=== PATIENT | female | born 1955 | race Caucasian/White ===

== ENCOUNTER 2020-06-16 09:00 | Day surgery (SDC) | payer BC, MEDICARE ==
[2020-06-11 11:17] LABS: BASOPHILS % (AUTO) 0.7 % (0.0-5.0); EOSINOPHILS % (AUTO) 2.1 % (0.0-8.0); HEMATOCRIT 45.6 % (36-48); LYMPHOCYTES % (AUTO) 22.9 % (21.0-51.0); MEAN CORPUSCULAR HEMOGLOBIN 31.2 pg (27.0-33.0); MEAN CORPUSCULAR HGB CONC 32.7 g/dL (32.0-36.0); MEAN CORPUSCULAR VOLUME 95.4 fL (79-99); MONOCYTES % (AUTO) 5.6 % (3.0-13.0); NEUTROPHILS % (AUTO) 68.4 % (40.0-77.0); PLATELET COUNT (AUTO) 322 K/uL (130-400); RED BLOOD CELL COUNT(AUTO) 4.78 MIL/uL (4.00-5.50); RED CELL DISTRIBUTION WIDTH 12.5 % (11.0-15.5); WHITE BLOOD COUNT (AUTO) 8.7 K/uL (4.8-10.8)
[2020-06-11 11:37] LABS: ALBUMIN 3.7 g/dL (3.5-5.0); BILIRUBIN,TOTAL 0.3 mg/dL (0.2-1.0); CREATININE 0.8 mg/dL (0.5-1.5); POTASSIUM 4.2 mmol/L (3.5-5.1); TOTAL PROTEIN, SERUM 7.4 g/dL (6.0-8.3)
[2020-06-11 12:19] LABS: INR 0.92 (0.85-1.15); PARTIAL THROMBOPLASTIN TIME 27.5 SEC (26.3-35.5)
[2020-06-14 09:49] VITALS: BP 193/84
[2020-06-16] VITALS (17 sets, daily range): BP systolic 118–184; BP diastolic 63–92
[~2020-06-16] VITALS: Ht 162.6 cm; Wt 90.6 kg
[~2020-06-16 09:00] MED LIST: ALBU8.5H8 IH; ASPI-556 PO; BUPR300T53 PO; LEVO112T4 PO; LORA10TA7 PO; LOSA100T58 PO; METF-444 PO
--- NOTE | 2020-06-16 11:20 | NUR ---
PROCEDURE LEFT BREAST NEEDLE LOCALIZATION PERFORMED BY DR AMEZQUITA. PT TERRANCE WELL. LEFT BREAST WITH WIRE IN PLACE DRESSING APPLIED DRY AND INTACT, PT TRANSFERRED BACK TO HOLDING AREA ROOM 10. PT PENDING SURGERY WITH DR. NICHOLS. REPORT GIVEN TO Eva AVILES RN
[2020-06-16] MEDS ORDERED: LIDOCAINE PF 2% 5ML ABBOJECT ONE (12:16)
[2020-06-16] MEDS ORDERED: PROPOFOL 10 MG/ML 20ML VIAL IV ONE (12:17)
[2020-06-16] MEDS ORDERED: FENTANYL CITRATE PF 50 MCG/1 ML 2ML VIAL ONE (12:17)
[2020-06-16] MEDS ORDERED: ONDANSETRON HCL 4 MG/2 ML VIAL ONE (12:17)
[2020-06-16] MEDS ORDERED: MIDAZOLAM HCL 1 MG/ML 2ML VIAL ONE (12:17)
[2020-06-16] MEDS ORDERED: DEXAMETHASONE SOD PHOSPHATE 10MG/ML 1ML VIAL ONE (12:17)
[2020-06-16] MEDS ORDERED: ROCURONIUM 10MG/1ML SYR 10 MG/ML ML ONE (12:18)
[2020-06-16] MEDS ORDERED: EPHEDRINE SULFATE 50 MG/ML AMPULE ONE (12:37)
[2020-06-16] MEDS ORDERED: NEOSTIGMINE 5MG/5ML SYR IV ONE (13:37)
[2020-06-16] MEDS ORDERED: GLYCOPYRROLATE 1 MG/5 ML SYRINGE ONE (13:37)
[2020-06-16] MEDS ORDERED: CEFAZOLIN SODIUM 1 GM VIAL ONE (14:24)
--- NOTE | 2020-06-16 15:05 | NUR ---
PATIENT ARRIVED TO DAY PATIENT VIA STRETCHER BY EMILY HSU RN. PATIENT [id number], RESPIRATIONS UNLABORED, VITAL SIGNS WNL. PATIENT DENIES ANY PAIN AT THIS TIME. PATIENT STATES SHE FEELS SORENESS TO THE INCISION AREA. INCISION TO LEFT AREOLA IS WELL APPROXIMATED WITH DERMABOND IN PLACE. NO BLEEDING OR HEMATOMA NOTED, NO DRAINAGE.
--- NOTE | 2020-06-16 15:40 | NUR ---
DISCHARGE INSTRUCTIONS GIVEN VIA TELEPHONE TO PATIENT'S DAUGHTER (ROCIO JOHNSON). PROVIDED DISCHARGE APPOINTMENT AND INCISION CARE INSTRUCTIONS. INSTRUCTED TO DROP OFF PRESCRIPTION TO PHARMACY FOR PAIN MEDICATION. ALL QUESTIONS/CONCERNS ADDRESSED.
--- NOTE | 2020-06-16 15:50 | NUR ---
PATIENT DISCHARGED FROM FACILITY VIA WHEELCHAIR BY SAMANTHA. PATIENT ASSISTED INTO PRIVATE VEHICLE DRIVEN BY FAMILY MEMBER.
== END 2020-06-16 15:50 | disposition home or self-care (01) ==
LOC: DAH 09:00 → EDSTATUS 10:00 → DAH 15:50
PROVIDERS: ATTEND Student in an Organized Health Care Education/Training Program
DX: D24.2 Benign neoplasm of left breast (principal); N64.52 Nipple discharge; E11.9 Type 2 diabetes mellitus without complications; E78.5 Hyperlipidemia, unspecified; E03.9 Hypothyroidism, unspecified; E66.9 Obesity, unspecified; I10 Essential (primary) hypertension; J45.909 Unspecified asthma, uncomplicated; Z86.010 Personal history of colon polyps; Z90.710 Acquired absence of both cervix and uterus; Z79.82 Long term (current) use of aspirin; Z79.84 Long term (current) use of oral hypoglycemic drugs; Z79.899 Other long term (current) drug therapy; Z88.2 Allergy status to sulfonamides; Z20.828 Contact with and (suspected) exposure to other viral communicable diseases; Z79.01 Long term (current) use of anticoagulants
CPT/HCPCS: 19285; 19301; 36415; 71045; 76098; 77065; 80053; 82948; 85025; 85610; 85730; 93005; A4215; A4221; A4222; A4223; A4600; A4649; A4663; A4930; G0168; J0690; J1100; J2001; J2250; J2405; J2704; J2710; J3010; J3490 ×2; U0003; 76942; G0378